=== PATIENT | male | born 2000 | race Hispanic/Latino ===

== ENCOUNTER 2024-03-13 10:48 | Emergency (ER) | payer OTHER ==
[~2024-03-13] VITALS: Ht 170.2 cm; Wt 90.7 kg
[2024-03-13 10:52] VITALS: O2SAT 100
== END 2024-03-13 11:36 | disposition home or self-care (01) ==
LOC: ER 11:27
DX: R10.33 Periumbilical pain (principal); K42.9 Umbilical hernia without obstruction or gangrene
CPT/HCPCS: 99282